=== PATIENT | female | born 1940 | race Caucasian/White ===

== ENCOUNTER → 2017-01-23 | Outpatient (CLI) | payer MEDICARE, BC | END | disposition home or self-care (01) | LOC: WOUND 12:52 | PROVIDERS: ATTEND Nurse Practitioner Family | DX: T81.31XA Disruption of external operation (surgical) wound, not elsewhere classified, initial encounter (principal); I87.323 Chronic venous hypertension (idiopathic) with inflammation of bilateral lower extremity; E11.65 Type 2 diabetes mellitus with hyperglycemia; E66.9 Obesity, unspecified; E03.9 Hypothyroidism, unspecified; E78.5 Hyperlipidemia, unspecified; M19.90 Unspecified osteoarthritis, unspecified site; Z72.89 Other problems related to lifestyle; Z68.42 Body mass index [BMI] 45.0-49.9, adult; Z85.828 Personal history of other malignant neoplasm of skin; Z90.710 Acquired absence of both cervix and uterus; Z96.653 Presence of artificial knee joint, bilateral; Y83.8 Other surgical procedures as the cause of abnormal reaction of the patient, or of later complication, without mention of misadventure at the time of the procedure; Y92.89 Other specified places as the place of occurrence of the external cause | CPT/HCPCS: 11042; 11045; 29581; G0463; WOU0463 ==

== ENCOUNTER → 2017-01-26 | Outpatient (CLI) | payer MEDICARE, BC | END | disposition home or self-care (01) | LOC: WOUND 09:30 | PROVIDERS: ATTEND Internal Medicine | DX: T81.31XD Disruption of external operation (surgical) wound, not elsewhere classified, subsequent encounter (principal); E11.65 Type 2 diabetes mellitus with hyperglycemia; I87.323 Chronic venous hypertension (idiopathic) with inflammation of bilateral lower extremity; E66.9 Obesity, unspecified; Z68.42 Body mass index [BMI] 45.0-49.9, adult; Z90.710 Acquired absence of both cervix and uterus; E78.5 Hyperlipidemia, unspecified; E03.9 Hypothyroidism, unspecified; Z72.89 Other problems related to lifestyle; Z85.828 Personal history of other malignant neoplasm of skin; Z96.653 Presence of artificial knee joint, bilateral; M19.90 Unspecified osteoarthritis, unspecified site; Y83.8 Other surgical procedures as the cause of abnormal reaction of the patient, or of later complication, without mention of misadventure at the time of the procedure | CPT/HCPCS: 29581 ==

== ENCOUNTER → 2017-01-30 | Outpatient (CLI) | payer MEDICARE, BC | END | disposition home or self-care (01) | LOC: WOUND 13:58 | PROVIDERS: ATTEND Nurse Practitioner Family | DX: T81.31XD Disruption of external operation (surgical) wound, not elsewhere classified, subsequent encounter (principal); E11.65 Type 2 diabetes mellitus with hyperglycemia; I87.323 Chronic venous hypertension (idiopathic) with inflammation of bilateral lower extremity; I10 Essential (primary) hypertension; E66.9 Obesity, unspecified; E78.5 Hyperlipidemia, unspecified; E03.9 Hypothyroidism, unspecified; M19.90 Unspecified osteoarthritis, unspecified site; Z68.42 Body mass index [BMI] 45.0-49.9, adult; Z85.828 Personal history of other malignant neoplasm of skin; Z90.710 Acquired absence of both cervix and uterus; Z72.89 Other problems related to lifestyle; Y83.8 Other surgical procedures as the cause of abnormal reaction of the patient, or of later complication, without mention of misadventure at the time of the procedure | CPT/HCPCS: 11043; 11046; 29581 ==

== ENCOUNTER → 2017-02-05 | Outpatient (CLI) | payer MEDICARE, BC | END | disposition home or self-care (01) | LOC: WOUND 08:30 | PROVIDERS: ATTEND Physician Assistant | DX: T81.31XD Disruption of external operation (surgical) wound, not elsewhere classified, subsequent encounter (principal); E11.65 Type 2 diabetes mellitus with hyperglycemia; I87.323 Chronic venous hypertension (idiopathic) with inflammation of bilateral lower extremity; I10 Essential (primary) hypertension; E66.9 Obesity, unspecified; E78.5 Hyperlipidemia, unspecified; M19.90 Unspecified osteoarthritis, unspecified site; E03.9 Hypothyroidism, unspecified; Z68.42 Body mass index [BMI] 45.0-49.9, adult; Z85.828 Personal history of other malignant neoplasm of skin; Z90.710 Acquired absence of both cervix and uterus; Z72.89 Other problems related to lifestyle; Y83.8 Other surgical procedures as the cause of abnormal reaction of the patient, or of later complication, without mention of misadventure at the time of the procedure | CPT/HCPCS: 11042; 11045 ==

== ENCOUNTER → 2017-06-21 | Outpatient (CLI) | payer MEDICARE, BC | END | disposition home or self-care (01) | LOC: CVU 12:40 | PROVIDERS: ATTEND Family Medicine | DX: I70.203 Unspecified atherosclerosis of native arteries of extremities, bilateral legs (principal); I10 Essential (primary) hypertension; E78.00 Pure hypercholesterolemia, unspecified; I86.8 Varicose veins of other specified sites; Z85.820 Personal history of malignant melanoma of skin | CPT/HCPCS: 93922; 93925; 93970 ==

== ENCOUNTER → 2017-09-07 | Outpatient (CLI) | payer MEDICARE, BC | END | disposition home or self-care (01) | LOC: CVU 13:35 | PROVIDERS: ATTEND Internal Medicine Cardiovascular Disease | DX: I07.1 Rheumatic tricuspid insufficiency (principal); I10 Essential (primary) hypertension | CPT/HCPCS: 93306 ==

== ENCOUNTER 2017-12-04 13:34 | Emergency (ER) | payer MEDICARE, BC ==
[~2017-12-04] VITALS: Ht 162.6 cm; Wt 125.6 kg
[2017-12-04 13:39] VITALS: BP 177/108
[2017-12-04] MEDS ORDERED: BACITRACIN ZINC OINT 500U/GM, 0.9 GM ONE (14:53)
== END 2017-12-04 16:26 | disposition home or self-care (01) ==
LOC: ED 16:00
DX: L03.116 Cellulitis of left lower limb (principal); I10 Essential (primary) hypertension
CPT/HCPCS: 99284

== ENCOUNTER → 2017-12-11 | Outpatient (CLI) | payer MEDICARE, BC | END | disposition home or self-care (01) | LOC: WOUND 12:58 | PROVIDERS: ATTEND Nurse Practitioner Family | DX: L97.222 Non-pressure chronic ulcer of left calf with fat layer exposed (principal); I87.2 Venous insufficiency (chronic) (peripheral); I10 Essential (primary) hypertension; E03.9 Hypothyroidism, unspecified; E78.5 Hyperlipidemia, unspecified; M81.0 Age-related osteoporosis without current pathological fracture; E66.9 Obesity, unspecified; M19.90 Unspecified osteoarthritis, unspecified site; Z85.828 Personal history of other malignant neoplasm of skin; Z90.710 Acquired absence of both cervix and uterus; Z87.891 Personal history of nicotine dependence; Z68.41 Body mass index [BMI] 40.0-44.9, adult | CPT/HCPCS: 11042; G0463; WOU0463 ==

== ENCOUNTER → 2017-12-14 | Outpatient (CLI) | payer MEDICARE, BC | END | disposition home or self-care (01) | LOC: WOUND 11:18 | PROVIDERS: ATTEND Family Medicine | DX: L97.222 Non-pressure chronic ulcer of left calf with fat layer exposed (principal); I87.2 Venous insufficiency (chronic) (peripheral); E03.9 Hypothyroidism, unspecified; E78.4 Other hyperlipidemia; I10 Essential (primary) hypertension; M81.0 Age-related osteoporosis without current pathological fracture; M19.90 Unspecified osteoarthritis, unspecified site; E66.01 Morbid (severe) obesity due to excess calories; Z68.42 Body mass index [BMI] 45.0-49.9, adult; Z90.710 Acquired absence of both cervix and uterus; Z87.891 Personal history of nicotine dependence; Z85.820 Personal history of malignant melanoma of skin | CPT/HCPCS: 97602 ==

== ENCOUNTER → 2017-12-18 | Outpatient (CLI) | payer MEDICARE, BC | END | disposition home or self-care (01) | LOC: WOUND 08:09 | PROVIDERS: ATTEND Internal Medicine Infectious Disease | DX: L97.222 Non-pressure chronic ulcer of left calf with fat layer exposed (principal); I87.2 Venous insufficiency (chronic) (peripheral); I10 Essential (primary) hypertension; E03.9 Hypothyroidism, unspecified; E78.5 Hyperlipidemia, unspecified; M81.0 Age-related osteoporosis without current pathological fracture; E66.9 Obesity, unspecified; M19.90 Unspecified osteoarthritis, unspecified site; Z85.828 Personal history of other malignant neoplasm of skin; Z90.710 Acquired absence of both cervix and uterus; Z87.891 Personal history of nicotine dependence; Z68.41 Body mass index [BMI] 40.0-44.9, adult | CPT/HCPCS: 11042 ==

== ENCOUNTER → 2017-12-25 | Outpatient (CLI) | payer MEDICARE, BC | END | disposition home or self-care (01) | LOC: WOUND 08:00 | PROVIDERS: ATTEND Internal Medicine Infectious Disease | DX: L97.222 Non-pressure chronic ulcer of left calf with fat layer exposed (principal); I87.2 Venous insufficiency (chronic) (peripheral); I10 Essential (primary) hypertension; E66.09 Other obesity due to excess calories; M81.0 Age-related osteoporosis without current pathological fracture; M19.90 Unspecified osteoarthritis, unspecified site; E03.9 Hypothyroidism, unspecified; E78.5 Hyperlipidemia, unspecified; Z68.41 Body mass index [BMI] 40.0-44.9, adult; Z90.710 Acquired absence of both cervix and uterus; Z87.891 Personal history of nicotine dependence; Z85.828 Personal history of other malignant neoplasm of skin | CPT/HCPCS: 15271; Q4101 ==

== ENCOUNTER → 2018-01-01 | Outpatient (CLI) | payer MEDICARE, BC | END | disposition home or self-care (01) | LOC: WOUND 09:27 | PROVIDERS: ATTEND Nurse Practitioner Family | DX: L97.222 Non-pressure chronic ulcer of left calf with fat layer exposed (principal); I87.2 Venous insufficiency (chronic) (peripheral); I10 Essential (primary) hypertension; E78.4 Other hyperlipidemia; E66.09 Other obesity due to excess calories; E66.01 Morbid (severe) obesity due to excess calories; E03.9 Hypothyroidism, unspecified; M81.0 Age-related osteoporosis without current pathological fracture; M19.90 Unspecified osteoarthritis, unspecified site; Z90.710 Acquired absence of both cervix and uterus; Z87.891 Personal history of nicotine dependence; Z85.828 Personal history of other malignant neoplasm of skin; Z68.42 Body mass index [BMI] 45.0-49.9, adult | CPT/HCPCS: 15271; Q4172 ==

== ENCOUNTER → 2018-01-04 | Outpatient (CLI) | payer MEDICARE, BC | END | disposition home or self-care (01) | LOC: WOUND 09:28 | PROVIDERS: ATTEND Family Medicine | DX: L97.222 Non-pressure chronic ulcer of left calf with fat layer exposed (principal); I87.2 Venous insufficiency (chronic) (peripheral); I10 Essential (primary) hypertension; E66.09 Other obesity due to excess calories; E03.9 Hypothyroidism, unspecified; E78.5 Hyperlipidemia, unspecified; M81.0 Age-related osteoporosis without current pathological fracture; M19.90 Unspecified osteoarthritis, unspecified site; Z85.828 Personal history of other malignant neoplasm of skin; Z87.891 Personal history of nicotine dependence | CPT/HCPCS: G0463; WOU0463 ==

== ENCOUNTER → 2018-01-08 | Outpatient (CLI) | payer MEDICARE, BC | END | disposition home or self-care (01) | LOC: WOUND 09:00 | PROVIDERS: ATTEND Nurse Practitioner Family | DX: L97.222 Non-pressure chronic ulcer of left calf with fat layer exposed (principal); I87.2 Venous insufficiency (chronic) (peripheral); E03.9 Hypothyroidism, unspecified; E78.4 Other hyperlipidemia; I10 Essential (primary) hypertension; M81.0 Age-related osteoporosis without current pathological fracture; M19.90 Unspecified osteoarthritis, unspecified site; E66.01 Morbid (severe) obesity due to excess calories; Z68.42 Body mass index [BMI] 45.0-49.9, adult; Z90.710 Acquired absence of both cervix and uterus; Z87.891 Personal history of nicotine dependence; Z85.820 Personal history of malignant melanoma of skin | CPT/HCPCS: 15271; Q4101 ==

== ENCOUNTER → 2018-01-15 | Outpatient (CLI) | payer MEDICARE, BC | END | disposition home or self-care (01) | LOC: WOUND 09:32 | PROVIDERS: ATTEND Internal Medicine Infectious Disease | DX: L97.222 Non-pressure chronic ulcer of left calf with fat layer exposed (principal); I10 Essential (primary) hypertension; I87.2 Venous insufficiency (chronic) (peripheral); M81.0 Age-related osteoporosis without current pathological fracture; E03.9 Hypothyroidism, unspecified; M19.90 Unspecified osteoarthritis, unspecified site; E78.4 Other hyperlipidemia; E66.01 Morbid (severe) obesity due to excess calories; Z68.42 Body mass index [BMI] 45.0-49.9, adult; Z90.710 Acquired absence of both cervix and uterus; Z96.653 Presence of artificial knee joint, bilateral; Z85.828 Personal history of other malignant neoplasm of skin; Z87.891 Personal history of nicotine dependence | CPT/HCPCS: 15271; Q4172 ==

== ENCOUNTER → 2018-01-22 | Outpatient (CLI) | payer MEDICARE, BC | END | disposition home or self-care (01) | LOC: WOUND 09:02 | PROVIDERS: ATTEND Internal Medicine Infectious Disease | DX: L97.222 Non-pressure chronic ulcer of left calf with fat layer exposed (principal); I87.2 Venous insufficiency (chronic) (peripheral); I10 Essential (primary) hypertension; E03.9 Hypothyroidism, unspecified; M81.0 Age-related osteoporosis without current pathological fracture; M19.90 Unspecified osteoarthritis, unspecified site; E66.01 Morbid (severe) obesity due to excess calories; E78.4 Other hyperlipidemia; Z90.710 Acquired absence of both cervix and uterus; Z68.42 Body mass index [BMI] 45.0-49.9, adult; Z87.891 Personal history of nicotine dependence; Z85.828 Personal history of other malignant neoplasm of skin | CPT/HCPCS: G0463; WOU0463 ==

== ENCOUNTER → 2018-02-05 | Outpatient (CLI) | payer MEDICARE, BC | END | disposition home or self-care (01) | LOC: WOUND 09:00 | PROVIDERS: ATTEND Nurse Practitioner Family | DX: L97.222 Non-pressure chronic ulcer of left calf with fat layer exposed (principal); I10 Essential (primary) hypertension; I87.2 Venous insufficiency (chronic) (peripheral); I89.0 Lymphedema, not elsewhere classified; E78.4 Other hyperlipidemia; E03.9 Hypothyroidism, unspecified; M19.90 Unspecified osteoarthritis, unspecified site; M81.0 Age-related osteoporosis without current pathological fracture; E66.09 Other obesity due to excess calories; Z68.42 Body mass index [BMI] 45.0-49.9, adult; Z87.891 Personal history of nicotine dependence; Z85.828 Personal history of other malignant neoplasm of skin | CPT/HCPCS: G0463; WOU0463 ==

== ENCOUNTER 2020-11-08 15:13 | Inpatient (IN) | payer MEDICARE, BC ==
[~2020-11-08] VITALS: Ht 160 cm; Wt 127.0 kg
[~2020-11-08 15:13] MED LIST: AMLO-210 PO; ASPI-430 PO; ATOR20TA86 PO; LEVO175T2 PO; LIOT5TAB11 PO; METO25TA4 PO; TELM1TAB26 PO
--- NOTE | 2020-11-08 16:47 | NUR ---
TO ROOM FROM LOBBY. NAD.
--- NOTE | 2020-11-08 16:58 | NUR ---
PT CAME IN [place] RIGHT SHOULDER PAIN. DENIES TRAUMA. "I TORE MY ROTATOR CUFF IN THERE 7 YEARS AGO AND SOMETIMES IT FLARES UP. BUT THE PAIN IS AWFUL RIGHT NOW". PT ALSO REPORTS THAT SHE HAS BEEN PLACED ON 2 LITERS O2 VIA [place] BY HER PCP AND THEY "HAVENT FIGURED OUT WHY I NEED THE O2". PT RESTING IN [facility]. LUCY. AWAITING MD AT THIS TIME
[2020-11-08] MEDS ORDERED: DIGOXIN 0.25 MG/ML, 2ML ONE ×2 (18:19→20:14)
[2020-11-08] MEDS ORDERED: DILTIAZEM 5 MG/ML, 5ML ONE ×2 (18:19→19:26)
[2020-11-08] MEDS ORDERED: DILTIAZEM 5 MG/ML, 5ML IVPush ONE ×2 (18:30→19:30)
[2020-11-08] MEDS ORDERED: DIGOXIN 0.25 MG/ML, 2ML IVPush ONE ×2 (18:30→22:30)
[2020-11-08 18:54] LABS: BASOPHILS % (AUTO) 0 % (0-1); EOSINOPHILS % (AUTO) 0 % (1-7); LYMPHOCYTES % (AUTO) 14 % (22-44); MEAN CORPUSCULAR HEMOGLOBIN 30.6 pg (27.0-34.8); MEAN CORPUSCULAR HGB CONC 32.7 g/dL (32.4-35.8); MEAN PLATELET VOLUME 8.9 fL (7.4-10.4); MONOCYTES % (AUTO) 8 % (2-9); NEUTROPHILS % (AUTO) 78 % (42-75); PLATELET COUNT 337 x10^3/uL (130-400); RED BLOOD COUNT 4.26 x10^6/uL (3.82-5.3); RED CELL DISTRIBUTION WIDTH 14.9 % (9.6-15.2)
--- NOTE | 2020-11-08 18:57 | NUR ---
PT MEDICATED PER JUL. HR NOW IN 130S-150S. NOTIFIED
[2020-11-08 19:00] LABS: ALBUMIN 3.4 g/dL (3.4-5.0); ANION GAP 6 mmol/L (5-15); CALCIUM 9.6 mg/dL (8.5-10.1); CHLORIDE 103 mmol/L (98-107); CREATININE 0.81 mg/dL (0.55-1.02)
[2020-11-08] MEDS ORDERED: AMIODARONE 50 MG/ML, 3ML IVPush ONE (20:00)
[2020-11-08] MEDS ORDERED: HYDROmorphone 1 MG/ML, 1ML INJ IV ONE (20:00)
[2020-11-08] MEDS ORDERED: HYDROmorphone 1 MG/ML, 1ML INJ ONE (20:04)
[2020-11-08] MEDS ORDERED: METOPROLOL 1 MG/ML, 5ML IVPush ONE (20:05)
[2020-11-08] MEDS ORDERED: METOPROLOL 1 MG/ML, 5ML ONE (20:15)
[2020-11-08] MEDS ORDERED: ENOXAPARIN 120MG/0.8ML SQ SCH (20:30)
[2020-11-08] MEDS ORDERED: AMIODARONE 150 MG in DEXTROSE 5% 100 ML IV ONE (21:30)
[2020-11-08] MEDS ORDERED: FILTER 0.22 MICRON FOR AMIODARONE IV PRN (21:30)
--- NOTE | 2020-11-08 22:07 | NUR ---
REPORT TO THOM RN Addendum: 11/08/20 at 2207 by YAMILE ETHEL
--- NOTE | 2020-11-08 22:09 | NUR ---
Report from Dorian DOMINGUEZ
[2020-11-08] MEDS ORDERED: DOCUSATE 100 MG CAPSULE PO PRN (22:30)
[2020-11-08] MEDS ORDERED: ACETAMINOPHEN 325 MG TABLET PO PRN (22:30)
[2020-11-08] MEDS ORDERED: ZOLPIDEM 5MG TABLET PO PRN (22:30)
[2020-11-08] MEDS ORDERED: METHOCARBAMOL 500 MG TABLET PO PRN (22:30)
[2020-11-08] MEDS ORDERED: ONDANSETRON 2MG/ML, 2ML IVPush PRN (22:30)
--- NOTE | 2020-11-08 23:29 | NUR ---
Report to Karel DOMINGUEZ
[2020-11-09 01:35] VITALS: BP 155/81
[2020-11-09] MEDS ORDERED: DILTIAZEM 125 MG in SODIUM CHLORIDE 0.9% 100 ML IV SCH ×2 (02:00→08:30)
[2020-11-09] MEDS: HYDROcodone/APAP 5/325 TABLET PO PRN ×4 (02:03→20:22)
[2020-11-09 05:47] LABS: ANION GAP 3 mmol/L (5-15); CALCIUM 9.1 mg/dL (8.5-10.1); CHLORIDE 103 mmol/L (98-107); CREATININE 0.72 mg/dL (0.55-1.02)
[2020-11-09 05:50] LABS: BASOPHILS % (AUTO) 0 % (0-1); EOSINOPHILS % (AUTO) 0 % (1-7); LYMPHOCYTES % (AUTO) 15 % (22-44); MEAN PLATELET VOLUME 8.6 fL (7.4-10.4); MONOCYTES % (AUTO) 12 % (2-9); NEUTROPHILS % (AUTO) 72 % (42-75); PLATELET COUNT 289 x10^3/uL (130-400); RED BLOOD COUNT 3.95 x10^6/uL (3.82-5.3); RED CELL DISTRIBUTION WIDTH 14.9 % (9.6-15.2)
[2020-11-09] MEDS: LEVOTHYROXINE 175 MCG TABLET PO SCH (05:51)
[2020-11-09 06:22] VITALS: BP 152/80
[2020-11-09] MEDS: HYDROCHLOROTHIAZIDE 25 MG TABLET PO SCH (08:16)
[2020-11-09] MEDS: AMLODIPINE 5 MG TABLET PO SCH (08:16)
[2020-11-09] MEDS: LOSARTAN 100 MG TAB PO SCH (08:17)
[2020-11-09] MEDS ORDERED: APIXABAN 5 MG TABLET ONE (08:20)
[2020-11-09] MEDS: APIXABAN 5 MG TABLET PO SCH ×2 (08:22→20:22)
[2020-11-09] MEDS: LIOTHYRONINE 5 MCG TABLET PO SCH (08:23)
[2020-11-09] MEDS: FAMOTIDINE 20 MG TABLET PO SCH ×2 (08:23→20:22)
[2020-11-09] MEDS ORDERED: ENOXAPARIN 120MG/0.8ML SQ SCH (08:30)
[2020-11-09] MEDS ORDERED: FAMOTIDINE 20 MG/2 ML IVPush SCH (09:00)
[2020-11-09 12:26] VITALS: BP 126/72
[2020-11-09] MEDS: DILTIAZEM 125 MG in SODIUM CHLORIDE 0.9% 100 ML IV SCH ×2 (17:44→22:16)
[2020-11-09] MEDS: METOPROLOL TARTRATE 25 MG TAB PO SCH (17:46)
[2020-11-09 19:55] VITALS: BP 116/81
[2020-11-09] MEDS ORDERED: DILTIAZEM 90 MG TABLET PO SCH (20:00)
[2020-11-09] MEDS: ATORVASTATIN 20 MG TABLET PO SCH (20:22)
[2020-11-10 01:38] VITALS: BP 117/79
[2020-11-10] MEDS: LEVOTHYROXINE 175 MCG TABLET PO SCH (05:52)
[2020-11-10] MEDS: METOPROLOL TARTRATE 25 MG TAB PO SCH ×2 (05:52→18:28)
[2020-11-10 07:00] VITALS: BP 114/76
[2020-11-10] MEDS: AMLODIPINE 5 MG TABLET PO SCH (09:35)
[2020-11-10] MEDS: LIOTHYRONINE 5 MCG TABLET PO SCH (09:35)
[2020-11-10] MEDS: APIXABAN 5 MG TABLET PO SCH ×2 (09:35→20:48)
[2020-11-10] MEDS: HYDROCHLOROTHIAZIDE 25 MG TABLET PO SCH (09:35)
[2020-11-10] MEDS: FAMOTIDINE 20 MG TABLET PO SCH (09:35)
[2020-11-10] MEDS: LOSARTAN 100 MG TAB PO SCH (09:35)
[2020-11-10] MEDS: HYDROcodone/APAP 5/325 TABLET PO PRN ×2 (09:35→20:49)
[2020-11-10] MEDS: DILTIAZEM CD 180 MG CAP.ER.24H PO SCH (09:42)
[2020-11-10 14:48] VITALS: BP 115/70
[2020-11-10 20:06] VITALS: BP 102/65
[2020-11-10] MEDS: ATORVASTATIN 20 MG TABLET PO SCH (20:49)
[2020-11-10] MEDS ORDERED: FAMOTIDINE 20 MG TABLET PO SCH (21:00)
[2020-11-11 01:12] VITALS: BP 104/66
[2020-11-11 06:08] LABS: ANION GAP 6 mmol/L (5-15); CALCIUM 9.1 mg/dL (8.5-10.1); CHLORIDE 102 mmol/L (98-107)
[2020-11-11 06:11] LABS: CREATININE 0.61 mg/dL (0.55-1.02)
[2020-11-11 06:12] LABS: BASOPHILS % (AUTO) 1 % (0-1); EOSINOPHILS % (AUTO) 4 % (1-7); LYMPHOCYTES % (AUTO) 20 % (22-44); MEAN CORPUSCULAR HEMOGLOBIN 31.4 pg (27.0-34.8); MEAN CORPUSCULAR HGB CONC 32.8 g/dL (32.4-35.8); MEAN PLATELET VOLUME 8.6 fL (7.4-10.4); MONOCYTES % (AUTO) 12 % (2-9); NEUTROPHILS % (AUTO) 64 % (42-75); PLATELET COUNT 309 x10^3/uL (130-400); RED BLOOD COUNT 3.89 x10^6/uL (3.82-5.3); RED CELL DISTRIBUTION WIDTH 15.1 % (9.6-15.2)
[2020-11-11] MEDS: LEVOTHYROXINE 175 MCG TABLET PO SCH (06:33)
[2020-11-11 06:34] VITALS: BP 144/103
[2020-11-11] MEDS: METOPROLOL TARTRATE 25 MG TAB PO SCH (06:34)
[2020-11-11 07:10] VITALS: BP 116/79
[2020-11-11] MEDS: APIXABAN 5 MG TABLET PO SCH (10:07)
[2020-11-11] MEDS: LOSARTAN 100 MG TAB PO SCH (10:08)
[2020-11-11] MEDS: AMLODIPINE 5 MG TABLET PO SCH (10:08)
[2020-11-11] MEDS: DILTIAZEM CD 180 MG CAP.ER.24H PO SCH (10:08)
[2020-11-11] MEDS: LIOTHYRONINE 5 MCG TABLET PO SCH (10:08)
[2020-11-11] MEDS: HYDROCHLOROTHIAZIDE 25 MG TABLET PO SCH (10:08)
[2020-11-11] MEDS ORDERED: DILT180C53 PO (13:55)
[2020-11-11] MEDS ORDERED: METO25TA35 PO (13:55)
[2020-11-11] MEDS ORDERED: HYDR-2214 PO (13:55)
[2020-11-11] MEDS ORDERED: APIX5TAB PO (13:55)
[2020-11-11 14:20] VITALS: BP 114/69
== END 2020-11-11 16:03 | disposition home or self-care (01) | DRG 308 ==
LOC: ED 21:21 → EDIP 23:01 → 5SO 11-09 01:35 → DCLOUNGE 11-11 15:38
PROVIDERS: ADMIT Internal Medicine; ATTEND Internal Medicine
DX: I48.91 Unspecified atrial fibrillation (principal); J96.21 Acute and chronic respiratory failure with hypoxia; Z68.42 Body mass index [BMI] 45.0-49.9, adult; I50.32 Chronic diastolic (congestive) heart failure; E66.2 Morbid (severe) obesity with alveolar hypoventilation; D72.829 Elevated white blood cell count, unspecified; E03.9 Hypothyroidism, unspecified; E78.5 Hyperlipidemia, unspecified; I11.0 Hypertensive heart disease with heart failure; I89.0 Lymphedema, not elsewhere classified; M13.10 Monoarthritis, not elsewhere classified, unspecified site; S42.124A Nondisplaced fracture of acromial process, right shoulder, initial encounter for closed fracture; W18.39XA Other fall on same level, initial encounter; Z66 Do not resuscitate; Z79.01 Long term (current) use of anticoagulants; Z79.899 Other long term (current) drug therapy; Z80.41 Family history of malignant neoplasm of ovary; Z82.49 Family history of ischemic heart disease and other diseases of the circulatory system; Z85.820 Personal history of malignant melanoma of skin; Z90.710 Acquired absence of both cervix and uterus; Y93.89 Activity, other specified; Y92.098 Other place in other non-institutional residence as the place of occurrence of the external cause; Y99.8 Other external cause status; Z90.49 Acquired absence of other specified parts of digestive tract
CPT/HCPCS: 36415; 71045; 80048; 82040; 83735; 84100; 84443; 85025; 93005; 96374; 96375; G0378; J1170; J1650; J1160

== ENCOUNTER 2021-01-15 11:15 | Inpatient (IN) | payer MEDICARE, BC ==
[~2021-01-15] VITALS: Ht 152.4 cm; Wt 116.0 kg
[2021-01-15] VITALS (7 sets, daily range): BP systolic 87–108; BP diastolic 56–79
[~2021-01-15 11:15] MED LIST changes: +APIX5TAB PO; +DILT180C53 PO; +HYDR-2214 PO; +METO25TA35 PO
--- NOTE | 2021-01-15 11:57 | NUR ---
PER ED MD DAVIS, BLOOD CULTURES NOT NECESSARY PRIOR TO ABX INFUSION.
[2021-01-15] MEDS ORDERED: SODIUM CHLORIDE FLUSH 10ML SYR IVF ONE (12:00)
[2021-01-15] MEDS ORDERED: CEFAZOLIN PMX 1GM/50ML 50 ML IV ONE (12:00)
[2021-01-15] MEDS ORDERED: CEFAZOLIN PMX 1GM/50ML 50 ML ONE (12:06)
[2021-01-15] MEDS ORDERED: FUROSEMIDE 40 MG/4 ML ONE (12:07)
[2021-01-15 12:09] LABS: BASOPHILS % (AUTO) 1 % (0-1); EOSINOPHILS % (AUTO) 1 % (1-7); LYMPHOCYTES % (AUTO) 16 % (22-44); MEAN CORPUSCULAR HEMOGLOBIN 31.1 pg (27.0-34.8); MEAN CORPUSCULAR HGB CONC 32.9 g/dL (32.4-35.8); MEAN PLATELET VOLUME 7.5 fL (7.4-10.4); MONOCYTES % (AUTO) 10 % (2-9); NEUTROPHILS % (AUTO) 73 % (42-75); PLATELET COUNT 399 x10^3/uL (130-400); RED BLOOD COUNT 4.37 x10^6/uL (3.82-5.3); RED CELL DISTRIBUTION WIDTH 16.2 % (9.6-15.2)
[2021-01-15 12:20] LABS: ALANINE AMINOTRANSFERASE 47 U/L (12-78); ALBUMIN 3.1 g/dL (3.4-5.0); ANION GAP 7 mmol/L (5-15); CALCIUM 8.6 mg/dL (8.5-10.1); CHLORIDE 102 mmol/L (98-107); CREATININE 1.52 mg/dL (0.55-1.02)
[2021-01-15 12:31] LABS: ALKALINE PHOSPHATASE 72 U/L (45-117); BILIRUBIN,TOTAL 0.3 mg/dL (0.2-1.0); TOTAL PROTEIN 7.3 g/dL (6.4-8.2)
--- NOTE | 2021-01-15 12:34 | NUR ---
PT HAS WEEPING LOWER EXTREMITY WOUNDS BILATERALLY. PT HAS NOTED INCREASE IN WOUNDS/PAIN/WEEPING OVER THE LAST WEEK. PT RESTING IN POSITION OF COMFORT IN GURNEY, CALL LIGHT W/IN REACH. PT INSTRUCTED ON USE, VERBALIZED UNDERSTANDING. PT TAKES LASIX AT HOME, FREQUENT URINATION. PUREWICK IN PLACE PER PROTOCOL TO ASSIST WITH MAINTAINING SKIN INTEGRITY DUE TO PT'S LACK OF MOBILITY AND URINARY INCONTINENCE. PT'S SPOUSE AT BEDSIDE. CONTINUOUS SPO2 AND CARDIAC MONITORING IN PLACE.
--- NOTE | 2021-01-15 12:38 | NUR ---
PT HYPOTENSIVE, TACHYCARDIC. ED MD MADE AWARE. SEPSIS PROTOCOL DISCUSSED. AWAITING FURTHER ORDERS. IV ABX INFUSING.
[2021-01-15] MEDS ORDERED: DILTIAZEM 5 MG/ML, 5ML ONE (12:41)
--- NOTE | 2021-01-15 12:53 | NUR ---
PT'S HOME O2 CONCENTRATOR LABELED WITH STICKER AND PLACED IN PT BELONGING BAG WITH [place]GOWN AND UNDERWEAR. PT AND SPOUSE AWARE. PT'S JEWELRY REMOVED BY PT'S SPOUSE AND KEPT BY HIM TO TAKE HOME.
[2021-01-15] MEDS ORDERED: FUROSEMIDE 40 MG/4 ML IV ONE (13:00)
[2021-01-15] MEDS ORDERED: ONDANSETRON 2MG/ML, 2ML IVPush PRN (13:00)
[2021-01-15] MEDS ORDERED: LABETALOL 5MG/ML, 20ML IVPush PRN (13:00)
[2021-01-15] MEDS ORDERED: ACETAMINOPHEN 325 MG TABLET PO PRN (13:00)
[2021-01-15] MEDS ORDERED: DILTIAZEM 5 MG/ML, 5ML IV ONE (13:00)
[2021-01-15] MEDS ORDERED: HEPARIN 5,000 UNITS/ML, 1ML SQ SCH (13:00)
[2021-01-15] MEDS ORDERED: DILTIAZEM 60 MG TABLET PO ONE (13:00)
[2021-01-15] MEDS ORDERED: DILTIAZEM CD 180 MG CAP.ER.24H PO SCH (15:30)
[2021-01-15] MEDS ORDERED: DILTIAZEM 5 MG/ML, 5ML IVPush ONE (15:30)
[2021-01-15] MEDS ORDERED: AMIODARONE 450 MG in DEXTROSE 5% 241 ML IV PRN (16:00)
[2021-01-15] MEDS ORDERED: AMIODARONE 150 MG in DEXTROSE 5% 100 ML IV ONE (16:00)
[2021-01-15] MEDS ORDERED: FILTER 0.22 MICRON FOR AMIODARONE IV PRN (16:00)
[2021-01-15] MEDS: AMIODARONE 450 MG in DEXTROSE 5% 241 ML IV SCH (16:34)
[2021-01-15] MEDS ORDERED: METOPROLOL TARTRATE 25 MG TAB PO SCH (18:00)
[2021-01-15] MEDS: ATORVASTATIN 20 MG TABLET PO SCH (20:03)
[2021-01-15] MEDS: APIXABAN 5 MG TABLET PO SCH (20:03)
[2021-01-15] MEDS ORDERED: PHARMACY MAY ADJ FOR RENAL FX MC PRN (23:00)
[2021-01-15] MEDS: CEFEPIME 1 GM in DEXTROSE 5% 50 ML IV SCH (23:48)
[2021-01-16] VITALS (16 sets, daily range): BP systolic 85–147; BP diastolic 55–85
[2021-01-16] MEDS ORDERED: SODIUM CHLORIDE 0.9%, 500ML IVBOLUS ONE (01:00)
[2021-01-16] MEDS: AMIODARONE 450 MG in DEXTROSE 5% 241 ML IV SCH ×3 (01:36→18:48)
[2021-01-16] MEDS ORDERED: AMIODARONE 150 MG in DEXTROSE 5% 100 ML IV ONE (02:30)
[2021-01-16] MEDS: LEVOTHYROXINE 175 MCG TABLET PO SCH (05:22)
[2021-01-16] MEDS ORDERED: DIGOXIN 0.25 MG/ML, 2ML IVPush ONE ×2 (07:00→09:30)
[2021-01-16] MEDS: CEFEPIME 1 GM in DEXTROSE 5% 50 ML IV SCH ×2 (07:22→18:51)
[2021-01-16] MEDS: ASPIRIN 81 MG TABLET EC PO SCH (08:46)
[2021-01-16] MEDS: APIXABAN 5 MG TABLET PO SCH ×2 (08:47→20:48)
[2021-01-16] MEDS: LIOTHYRONINE 5 MCG TABLET PO SCH (08:47)
[2021-01-16 08:48] LABS: BASOPHILS % (AUTO) 1 % (0-1); EOSINOPHILS % (AUTO) 1 % (1-7); LYMPHOCYTES % (AUTO) 16 % (22-44); MEAN CORPUSCULAR HEMOGLOBIN 31.1 pg (27.0-34.8); MEAN CORPUSCULAR HGB CONC 33.2 g/dL (32.4-35.8); MEAN PLATELET VOLUME 7.7 fL (7.4-10.4); MONOCYTES % (AUTO) 13 % (2-9); NEUTROPHILS % (AUTO) 70 % (42-75); PLATELET COUNT 298 x10^3/uL (130-400); RED BLOOD COUNT 3.97 x10^6/uL (3.82-5.3); RED CELL DISTRIBUTION WIDTH 16.4 % (9.6-15.2)
[2021-01-16 08:58] LABS: ALANINE AMINOTRANSFERASE 33 U/L (12-78); ALBUMIN 2.5 g/dL (3.4-5.0); ANION GAP 7 mmol/L (5-15); CALCIUM 8.3 mg/dL (8.5-10.1); CHLORIDE 104 mmol/L (98-107)
[2021-01-16] MEDS ORDERED: DILTIAZEM CD 180 MG CAP.ER.24H PO SCH (09:00)
[2021-01-16] MEDS ORDERED: AMLODIPINE 5 MG TABLET PO SCH (09:00)
[2021-01-16 09:01] LABS: ALKALINE PHOSPHATASE 59 U/L (45-117); BILIRUBIN,TOTAL 0.8 mg/dL (0.2-1.0); CREATININE 0.91 mg/dL (0.55-1.02); TOTAL PROTEIN 6.3 g/dL (6.4-8.2)
[2021-01-16 09:33] LABS: FREE T4 (FREE THYROXINE) 1.65 ng/dL (0.76-1.46)
[2021-01-16] MEDS ORDERED: PROPOFOL 10 MG/ML, 20ML ONE (16:08)
[2021-01-16] MEDS: HYDROcodone/APAP 5/325 TABLET PO PRN ×2 (18:46→19:12)
[2021-01-16] MEDS: ATORVASTATIN 20 MG TABLET PO SCH (20:48)
[2021-01-17] MEDS: HYDROcodone/APAP 5/325 TABLET PO PRN ×4 (00:53→21:21)
[2021-01-17] MEDS: CEFEPIME 1 GM in DEXTROSE 5% 50 ML IV SCH ×2 (00:53→09:24)
[2021-01-17 00:58] VITALS: BP 112/75
[2021-01-17] MEDS: AMIODARONE 450 MG in DEXTROSE 5% 241 ML IV SCH (03:22)
[2021-01-17 05:37] LABS: BASOPHILS % (AUTO) 1 % (0-1); EOSINOPHILS % (AUTO) 3 % (1-7); LYMPHOCYTES % (AUTO) 10 % (22-44); MEAN CORPUSCULAR HEMOGLOBIN 31.5 pg (27.0-34.8); MEAN CORPUSCULAR HGB CONC 33.4 g/dL (32.4-35.8); MEAN PLATELET VOLUME 7.2 fL (7.4-10.4); MONOCYTES % (AUTO) 11 % (2-9); NEUTROPHILS % (AUTO) 75 % (42-75); PLATELET COUNT 272 x10^3/uL (130-400); RED BLOOD COUNT 3.85 x10^6/uL (3.82-5.3); RED CELL DISTRIBUTION WIDTH 15.9 % (9.6-15.2)
[2021-01-17] MEDS: LEVOTHYROXINE 175 MCG TABLET PO SCH (05:41)
[2021-01-17 05:47] LABS: CHLORIDE 104 mmol/L (98-107)
[2021-01-17 06:11] LABS: ALANINE AMINOTRANSFERASE 29 U/L (12-78); ALBUMIN 2.2 g/dL (3.4-5.0); ALKALINE PHOSPHATASE 59 U/L (45-117); ANION GAP 3 mmol/L (5-15); BILIRUBIN,TOTAL 0.7 mg/dL (0.2-1.0); CALCIUM 8.6 mg/dL (8.5-10.1); CREATININE 0.81 mg/dL (0.55-1.02); TOTAL PROTEIN 6.1 g/dL (6.4-8.2)
[2021-01-17 07:15] VITALS: BP 116/77
[2021-01-17] MEDS: LIOTHYRONINE 5 MCG TABLET PO SCH (09:14)
[2021-01-17] MEDS: APIXABAN 5 MG TABLET PO SCH ×2 (09:14→21:21)
[2021-01-17] MEDS: ASPIRIN 81 MG TABLET EC PO SCH (09:14)
[2021-01-17] MEDS ORDERED: FUROSEMIDE 40 MG TABLET PO SCH (11:00)
[2021-01-17] MEDS: AMIODARONE 200 MG TABLET PO SCH ×2 (12:34→21:19)
[2021-01-17] MEDS: POTASSIUM CHLORIDE 20 MEQ TAB.ER.PRT PO SCH (12:35)
[2021-01-17 14:21] VITALS: BP 117/89
[2021-01-17] MEDS: CEFAZOLIN 2,000 MG in SODIUM CHLORIDE 0.9% 50 ML IV SCH (18:01)
[2021-01-17 19:22] VITALS: BP 121/75
[2021-01-17] MEDS: ATORVASTATIN 20 MG TABLET PO SCH (21:21)
[2021-01-18 01:54] VITALS: BP 117/77
[2021-01-18] MEDS: LEVOTHYROXINE 175 MCG TABLET PO SCH (05:05)
[2021-01-18] MEDS: CEFAZOLIN 2,000 MG in SODIUM CHLORIDE 0.9% 50 ML IV SCH ×2 (05:05→17:34)
[2021-01-18 08:19] LABS: BASOPHILS % (AUTO) 1 % (0-1); EOSINOPHILS % (AUTO) 6 % (1-7); LYMPHOCYTES % (AUTO) 13 % (22-44); MEAN CORPUSCULAR HGB CONC 32.5 g/dL (32.4-35.8); MEAN PLATELET VOLUME 7.2 fL (7.4-10.4); MONOCYTES % (AUTO) 13 % (2-9); NEUTROPHILS % (AUTO) 67 % (42-75); PLATELET COUNT 269 x10^3/uL (130-400); RED BLOOD COUNT 3.84 x10^6/uL (3.82-5.3); RED CELL DISTRIBUTION WIDTH 16.5 % (9.6-15.2)
[2021-01-18 08:31] LABS: ALBUMIN 2.1 g/dL (3.4-5.0); ANION GAP 3 mmol/L (5-15); CALCIUM 8.9 mg/dL (8.5-10.1); CHLORIDE 105 mmol/L (98-107)
[2021-01-18 08:37] LABS: ALANINE AMINOTRANSFERASE 28 U/L (12-78); ALKALINE PHOSPHATASE 59 U/L (45-117); BILIRUBIN,TOTAL 0.3 mg/dL (0.2-1.0); CREATININE 0.67 mg/dL (0.55-1.02)
[2021-01-18] MEDS: LIOTHYRONINE 5 MCG TABLET PO SCH (09:35)
[2021-01-18] MEDS: POTASSIUM CHLORIDE 20 MEQ TAB.ER.PRT PO SCH (09:35)
[2021-01-18] MEDS: AMIODARONE 200 MG TABLET PO SCH ×2 (09:35→21:23)
[2021-01-18] MEDS: APIXABAN 5 MG TABLET PO SCH ×2 (09:35→21:23)
[2021-01-18] MEDS: ASPIRIN 81 MG TABLET EC PO SCH (09:35)
[2021-01-18] MEDS: DOCUSATE 100 MG CAPSULE PO SCH ×2 (09:35→21:24)
[2021-01-18] MEDS: FUROSEMIDE 40 MG/4 ML IV SCH ×2 (09:36→21:24)
[2021-01-18] MEDS ORDERED: POLYETHYLENE GLYCOL 17 GM PACKET PO ONE (10:00)
[2021-01-18 10:45] VITALS: BP 113/70
[2021-01-18] MEDS: HYDROcodone/APAP 5/325 TABLET PO PRN ×2 (14:18→21:54)
[2021-01-18 14:25] VITALS: BP 93/60
[2021-01-18 19:47] VITALS: BP 121/72
[2021-01-18] MEDS: ATORVASTATIN 20 MG TABLET PO SCH (21:23)
[2021-01-19] MEDS: HYDROcodone/APAP 5/325 TABLET PO PRN ×2 (01:17→18:21)
[2021-01-19 01:42] VITALS: BP 109/73
[2021-01-19] MEDS: LEVOTHYROXINE 175 MCG TABLET PO SCH (05:17)
[2021-01-19] MEDS: CEFAZOLIN 2,000 MG in SODIUM CHLORIDE 0.9% 50 ML IV SCH ×2 (05:19→17:00)
[2021-01-19 06:43] LABS: BASOPHILS % (AUTO) 1 % (0-1); EOSINOPHILS % (AUTO) 5 % (1-7); LYMPHOCYTES % (AUTO) 20 % (22-44); MEAN CORPUSCULAR HEMOGLOBIN 30.7 pg (27.0-34.8); MEAN CORPUSCULAR HGB CONC 32.6 g/dL (32.4-35.8); MEAN PLATELET VOLUME 7.2 fL (7.4-10.4); MONOCYTES % (AUTO) 14 % (2-9); NEUTROPHILS % (AUTO) 60 % (42-75); PLATELET COUNT 279 x10^3/uL (130-400); RED BLOOD COUNT 3.96 x10^6/uL (3.82-5.3); RED CELL DISTRIBUTION WIDTH 16.2 % (9.6-15.2)
[2021-01-19 06:50] LABS: ANION GAP 4 mmol/L (5-15); CHLORIDE 105 mmol/L (98-107)
[2021-01-19 06:57] LABS: ALANINE AMINOTRANSFERASE 30 U/L (12-78); ALBUMIN 2.2 g/dL (3.4-5.0); ALKALINE PHOSPHATASE 63 U/L (45-117); BILIRUBIN,TOTAL 0.4 mg/dL (0.2-1.0); CREATININE 0.66 mg/dL (0.55-1.02)
[2021-01-19 07:00] VITALS: BP 118/69
[2021-01-19] MEDS: DOCUSATE 100 MG CAPSULE PO SCH (08:51)
[2021-01-19] MEDS: LIOTHYRONINE 5 MCG TABLET PO SCH (08:51)
[2021-01-19] MEDS: FUROSEMIDE 40 MG/4 ML IV SCH (08:51)
[2021-01-19] MEDS: POTASSIUM CHLORIDE 20 MEQ TAB.ER.PRT PO SCH (08:51)
[2021-01-19] MEDS: ASPIRIN 81 MG TABLET EC PO SCH (08:51)
[2021-01-19] MEDS: AMIODARONE 200 MG TABLET PO SCH (08:51)
[2021-01-19] MEDS: APIXABAN 5 MG TABLET PO SCH (08:51)
[2021-01-19] MEDS ORDERED: AMIO200T42 PO (13:22)
[2021-01-19] MEDS ORDERED: POTA-143 PO (13:22)
[2021-01-19] MEDS ORDERED: FURO40TA6 PO (13:24)
[2021-01-19] MEDS ORDERED: SULF1TAB24 PO (13:27)
[2021-01-19] MEDS ORDERED: CEFD300C37 PO ×2 (13:28)
[2021-01-19 13:56] VITALS: BP 125/76
[2021-01-19] MEDS ORDERED: LEVO750T6 PO (14:45)
[2021-01-19] MEDS ORDERED: TRAM50TA2 PO (15:13)
[2021-01-19] MEDS ORDERED: LEVOFLOXACIN/PMX 750MG/150ML 150 ML IV ONE (15:30)
== END 2021-01-19 19:00 | disposition home health service (06) | DRG 308 ==
LOC: ED 12:10 → EDIP 12:27 → 4EST 15:02 → 5SO 01-16 11:51
PROVIDERS: ADMIT Family Medicine; ATTEND Hospitalist
PROC: 5A2204Z Restoration of Cardiac Rhythm, Single (ICD-10-PCS; principal; 2021-01-15)
DX: I48.20 Chronic atrial fibrillation, unspecified (principal); I50.33 Acute on chronic diastolic (congestive) heart failure; L03.116 Cellulitis of left lower limb; N17.9 Acute kidney failure, unspecified; Z68.42 Body mass index [BMI] 45.0-49.9, adult; D68.69 Other thrombophilia; I11.0 Hypertensive heart disease with heart failure; I48.92 Unspecified atrial flutter; E78.5 Hyperlipidemia, unspecified; E03.9 Hypothyroidism, unspecified; E87.5 Hyperkalemia; I89.0 Lymphedema, not elsewhere classified; E66.9 Obesity, unspecified; R33.9 Retention of urine, unspecified; Z79.01 Long term (current) use of anticoagulants; Z80.41 Family history of malignant neoplasm of ovary; Z79.899 Other long term (current) drug therapy; Z90.710 Acquired absence of both cervix and uterus
CPT/HCPCS: 36415; 71045; 80053; 80162; 83735; 83880; 84100; 84145; 84439; 84443; 84481; 85025; 85651; 86140; 87040; 87070; 87077; 87186; 87205; 93005; 93308; 93321; 93325; 96361; 96365; 96375; 99291; G0378; J0690; J0692; J1940; J1956; J2405; J2704; J7060; J0282; J1160; J7040